=== PATIENT | male | born 1965 | race Caucasian/White ===

== ENCOUNTER 2019-01-02 12:09 | Outpatient (REF) | payer MEDICARE, SELFPAY ==
[2019-01-02 21:36] LABS: Hemoglobin A1C 5.8 % (4.5-6.2)
[2019-01-02 21:38] LABS: ALT 39 U/L (12-78); AST 25 U/L (15-37); Alkaline Phosphatase 85 U/L (46-116); Anion Gap 10.4 mmol/L (3-11); BUN 11 mg/dL (7-18); Bilirubin, Total 0.5 mg/dL (0.2-1.0); CO2 26.6 mmol/L (21.0-32.0); CREATININE 0.66 mg/dL (0.70-1.30); Calcium 8.8 mg/dL (8.5-10.1); Chloride 102 mmol/L (98-107); Cholesterol 98 mg/dL (50-200); Glucose 93 mg/dL (70-100); HDL Cholesterol 22 mg/dL (40-60); LDL CHOLESTEROL 63 mg/dL (<100); Potassium 4.3 mmol/L (3.5-5.1); Sodium 139 mmol/L (136-145); Total Protein 7.6 g/dL (6.4-8.2); Triglyceride 61 mg/dL (30-150)
[2019-01-04 09:17] LABS: PSA, Screening 0.2 ng/ml (0-3.5)
== END 2019-01-02 12:29 ==
LOC: NCHCN 12:09
PROVIDERS: PCP Family Medicine; Visit Provider Family Medicine
DX: E11.9 Type 2 diabetes mellitus without complications (principal); I25.10 Atherosclerotic heart disease of native coronary artery without angina pectoris; B19.20 Unspecified viral hepatitis C without hepatic coma; Z80.42 Family history of malignant neoplasm of prostate; Z12.5 Encounter for screening for malignant neoplasm of prostate
CPT/HCPCS: 80053; 80061; 83721; 84153; 83036

== ENCOUNTER 2019-10-05 19:02 | Emergency (ER) | payer MEDICARE, SELFPAY ==
[2019-10-05] VITALS (18 sets, daily range): BP systolic 105–120; BP diastolic 63–78; PULSE 63–73; RESP 12–20; TEMP 37.2; O2SAT 95–98
--- NOTE | 2019-10-05 19:12 | W.ED.GENAD ---
Discharge Plan Disposition Patient Disposition: HOME Condition: Good Discharge Details Chief Complaint: Dizzy/Sync Clinical Impression: Abnormal bruising, Lightheadedness Primary Care Provider: Lyndsay Katz V ED Provider: Jen Pierce Home Meds and New Rx's Prescriptions: Continued atorvastatin 80 MG tablet 80 mg PO DAILY RF: 0 clopidogrel 75 MG tablet 75 mg PO DAILY RF: 0 nitroglycerin 0.4 MG tablet, sublingual 0.4 mg Sublingual ONCE PRNRF: 0 aspirin 81 MG tablet,chewable 81 mg PO DAILY RF: 0 metoprolol succinate 25 MG tablet extended release 24 hr 25 mg PO DAILY RF: 0 naratriptan 2.5 MG tablet 2.5 mg PO ONCE PRNRF: 0 buprenorphine-naloxone 1 EACH tablet, sublingual 12 mg Sublingual DAILY RF: 0 isosorbide mononitrate 30 MG tablet extended release 24 hr 30 mg PO DAILY Qty: 90 RF: 3 gabapentin 300 mg Capsule 400 mg PO QID PRN (Reason: Pain) RF: 0 Discharge Instructions Instructions: Purpura (ED) Additional Instructions: Encourage water intake. Please take medication as prescribed. Your rash is most consistent with bruising. Please follow-up with primary care next week. If you develop pain, fevers, chills, chest pain, shortness of breath, spreading of the rash or the new/worsening symptoms please seek care urgently once again. Referrals: Lyndsay Katz MD [Primary Care Provider] - Medical Decision Making Patient is pleasant 54-year-old [id number] male presenting today with chief complaint of rash on the right forearm. He also describes episode of lightheadedness. He reports lightheadedness occurred this morning after he was working on his knees for period of time and went to standing position. States that it went away with rest. He denies any chest pain. No shortness of breath. He reports that he was splitting wood prior to this and did not have any symptoms. Has not noted any exertional symptoms. No fevers or chills. No recent travel. Patient is on Plavix and aspirin. His primary concern today is for a rash on the dorsal aspect of his right forearm. He states that this is only noted when his daughter saw the rash when he removed sweatshirt. He denies any pain, itching, fever/chills. No known trauma. EKG reviewed by Dr. Austin. Patient is normal sinus rhythm with a rate of 74. Was questioning possible peak T waves initially but this is unchanged from previous EKG in 2018. Ideally he advised that this seems to be fairly localized and not consistent with hyperkalemia. Labs are reassuring. No leukocytosis. A significant elevation in INR. Electrolyte abnormalities. Normal kidney and liver function. Troponin is less than 0.05. As his episode of lightheadedness was this morning, do not feel that repeat is necessary. Discussed these findings with the patient. Patient is a rash only dorsal aspect of the right forearm. Non-blanchable purple rash, most consistent with petechial rash. This is an isolated area. No rash noted elsewhere. He does report easy bleeding the patient again, is on a thorough and aspirin. Rash was evaluated by Dr. eBrry. He agrees that this most consistent with unusual bruising probably from a shearing injury, particular as the patient is on aspirin and clopidogrel. He marked out the area with a pen so patient may evaluate this and continue to monitor this more closely. Patient I discussed care of ecchymotic area. I encouraged close follow-up with primary care. He was given return precautions. Advised to continue to watch the area for any worsening symptoms. Return if he has any further episodes of lightheadedness. All his questions and concerns were addressed and prescription and he was in agreement with this plan. HPI General Mode of arrival: ambulatory. Date/Time Provider Initiated Documentation: 10/05/19 19:12. Limitations to Documentation: no limitations. Information obtained by: patient and RN notes reviewed. HPI Narrative: Patient is a 54-year-old male with history of NM, depression, diabetes, hepatitis C. He is presenting today with chief complaint of rash on right forearm. States that he noted a rash this afternoon. Is not having any burning, pain or sensation changes. States that he noted this when he took off his sweatshirt today and saw this area of purplish tinge to his skin on the dorsal aspect of the right forearm. No known trauma. Patient reports that he was splitting wood this morning. Does not believe that he injured himself but states it is not unusual for him to bruise easily particularly as he is on aspirin, clopidogrel. He reports that he also had an episode of lightheadedness. He was kneeling on the floor, sorting wood. Went to a standing position and reports a few minutes of lightheadedness. States that he sat down and the symptoms resolved. Did not note any of these when he was more physically exerting himself this morning while cutting wood. Denies any chest pain, shortness of breath. Reports it does not feel like when he had his NM historically. Denies any visual changes. Has not had any symptoms like this since then. He reports chronic shortness of breath, no recent change. Attributes this to his chronic smoking. No fevers or chills. Denies any cough. No nausea vomiting. Related Data Home Medications Medication Instructions Recorded Confirmed aspirin 81 mg PO DAILY tab-cap 05/23/17 10/05/19 atorvastatin 80 mg PO DAILY tab-cap 05/23/17 10/05/19 buprenorphine-naloxone 12 mg SUBLINGUAL DAILY tab 05/23/17 10/05/19 clopidogrel 75 mg PO DAILY tab-cap 05/23/17 10/05/19 metoprolol succinate 25 mg PO DAILY tab-cap 05/23/17 10/05/19 naratriptan 2.5 mg PO ONCE PRN tab-cap 05/23/17 10/05/19 nitroglycerin 0.4 mg SUBLINGUAL ONCE PRN tab-cap 05/23/17 10/05/19 isosorbide mononitrate 30 mg PO DAILY #90 tab-cap 07/25/17 10/05/19 gabapentin 400 mg PO QID PRN 10/05/19 10/05/19 Previous Rx's Medication Instructions Recorded isosorbide mononitrate 30 mg PO DAILY #90 tab-cap 07/25/17 Allergies Allergy/AdvReac Type Severity Reaction Status Date / Time Penicillins Allergy Intermediate Skin Rash Unverified 10/05/19 19:12 bupropion HCl AdvReac Intermediate Unverified 10/05/19 19:12 [From Wellbutrin] codeine AdvReac Unverified 10/05/19 19:12 zolpidem tartrate AdvReac Unverified 10/05/19 19:12 [From Ambien] General Stated Complaint: Dizzy/Sync PAULA: 3 Review of Systems Constitutional Constitutional: Reports as per HPI, Denies chills, Denies fever(s), Denies headache(s), Denies lethargy and Denies poor appetite Eyes Eyes: Denies change in vision ENT Ears, Nose, Mouth, and Throat: Denies dizziness and Denies headache(s) Cardiovascular Cardiovascular: Reports as per HPI, Denies dyspnea and Denies dyspnea on exertion Respiratory Respiratory: Reports as per HPI, Denies chest congestion, Denies cough, Denies pain on inspiration, Denies pain with cough, Denies dyspnea, Denies dyspnea on exertion and Denies wheezing Gastrointestinal Gastrointestinal: Reports as per HPI, Denies abdominal pain, Denies diarrhea, Denies nausea and Denies vomiting Genitourinary Genitourinary: Denies system reviewed and no additional complaints, except as docu (denies change in urinary habits) Musculoskeletal Musculoskeletal: Reports as per HPI and Denies back pain Integumentary/Breasts Skin/Breast: Reports as per HPI and Denies rash Neurologic Neurologic: Reports as per HPI, Denies dizziness and Denies headache(s) Allergic/Immunologic Allergic/Immunologic: Denies wheezing [facility] Medical History (Updated 10/05/19 @ 19:13 by Marlys Castañeda) Acute NM (Acute) Surgical History (Updated 10/05/19 @ 19:13 by Marlys Castañeda) H/O heart artery stent (Chronic) Social History Smoking/Tobacco Use Status: Current every day Tobacco Type: cigarettes Tobacco: How many years used: 35 Alcohol Intake: former Drug use: Daily Substance use type: marijuana Do you feel safe at home: Yes Do you feel safe in your relationship?: Yes Exam Const General: cooperative, healthy appearing, comfortable, no acute distress and well developed Nutritional Appearance: average body habitus and well nourished Orientation: alert, awake and oriented x3 HENMT Head: normal to inspection Ears: hearing grossly normal bilaterally Mouth: moist mucous membranes Chest Chest: normal inspection of the chest, normal palpation of entire chest wall and no crepitus Resp Effort & Inspection: normal respiratory effort, able to speak in complete sentences and no respiratory distress Auscultation: clear to auscultation bilaterally, no rales, no rhonchi and no wheezes Cardio Rate: regular rate Rhythm: regular rhythm Heart Sounds: S1 normal and S2 normal GI Inspection: normal to inspection, no edema and non-distended Palpation: soft, no hepatosplenomegaly, not firm, no guarding, not rigid and nontender Auscultation: normal bowel sounds Back/Spine/Pelvis Back: no CVA tenderness Thoracic/Lumbar Spine: thoracic and lumbar spine normal to inspection Skin Rashes: rashes noted (as below) Neuro General: alert, awake and oriented x3 Cognition: normal cognition Speech: speech normal Gait: normal gait Extrem General: normal to inspection, normal capillary refill, no pedal edema, no calf tenderness and normal gait Elbow/forearm/wrist images: 1. Area of non-blanchable petechial purple rash. Not raised. No erythema. No warmth. Nontender to the touch. Full range of motion of the extremity. Good capillary refill. Psych Appearance: grossly normal and well kempt Mental Status: mental status grossly normal Speech and Movement: speech and movement normal Course Vital Signs Vital signs: Vital Signs Temperature 37.2 C 10/05/19 19:08 Pulse 70 10/05/19 19:08 Respiratory Rate 10/05/19 19:08 Blood Pressure 120/78 10/05/19 19:08 Pulse Oximetry 98 10/05/19 19:08 Temperature 37.2 C 10/05/19 19:08 Temperature Source Skin 10/05/19 19:08 Pulse 70 10/05/19 19:08 Respiratory Rate 10/05/19 19:08 Blood Pressure 120/78 10/05/19 19:08 Blood Pressure Position Sitting 10/05/19 19:08 Pulse Oximetry 98 10/05/19 19:08 Oxygen Delivery Method Room Air 10/05/19 19:08 Oxygen Flow Rate 0 10/05/19 19:08 Pain Level 0 10/05/19 19:08
[2019-10-05] MEDS: Normal Saline 1,000 ML 150 ML IV (19:21)
[2019-10-05] MEDS: Normal Saline Flush 10 ML SYR IVP (19:23)
[2019-10-05 19:27] LABS: Abs Immature Grans 0.01 k/cumm (0.0-0.09); Absolute Basophil Count 0.05 k/cumm (0.0-0.2); Absolute Eosinophil Count 0.25 k/cumm (0.0-0.7); Absolute Lymphocyte Count 2.37 k/cumm (1.2-3.4); Absolute Monocyte Count 0.81 k/cumm (0.11-0.7); Absolute Neutrophil Count 4.61 k/cumm (1.2-6.7); Basophils % 0.6; Eosinophils % 3.1; HCT 39.6 % (40.0-50.0); HGB 13.6 g/dL (13.5-17.5); Immature Grans % 0.1 %; Lymphocytes % 29.3; Mean Corp. HGB Concentration 34.3 g/dL (32.0-36.0); Mean Corpuscular Hemoglobin 31.6 pg (27.0-33.0); Mean Corpuscular Volume 91.9 fL (80-95); Mean Platelet Volume 11.2 fL (8.0-11.0); Neutrophils % 56.9; Platelet Count 143 x1000/uL (130-400); RBC 4.31 m/cumm (4.50-6.00)
[2019-10-05 19:37] LABS: INR 1.2 (0.9-1.1); PTT Activated 28.1 sec (21.0-31.4); Prothrombin Time 12.1 sec (9.3-11.0)
[2019-10-05 19:55] LABS: ALT 33 U/L (16-63); AST 34 U/L (15-37); Albumin 3.9 g/dL (3.4-5.0); Alkaline Phosphatase 78 U/L (46-116); Anion Gap 10.5 mmol/L (3-11); BUN 12 mg/dL (7-18); Bilirubin, Total 0.4 mg/dL (0.2-1.0); CO2 27.5 mmol/L (21.0-32.0); CREATININE 0.76 mg/dL (0.70-1.30); Calcium 8.9 mg/dL (8.5-10.1); Chloride 104 mmol/L (98-107); Glucose 115 mg/dL (74-106); Magnesium 1.8 mg/dL (1.8-2.4); Sodium 142 mmol/L (136-145); Total Protein 7.4 g/dL (6.4-8.2)
[2019-10-05 19:56] LABS: Troponin I < 0.05 ng/Ml (<0.06)
== END 2019-10-05 21:15 | disposition home or self-care (01) ==
PROVIDERS: Emergency Provider Physician Assistant; PCP Family Medicine
DX: R23.3 Spontaneous ecchymoses (principal); R42 Dizziness and giddiness; Z79.01 Long term (current) use of anticoagulants; I25.2 Old myocardial infarction; E11.9 Type 2 diabetes mellitus without complications
CPT/HCPCS: 80053; 93005; 99283; 83735; 84484; 85025; 85610; 85730; 93010

== ENCOUNTER 2019-11-20 20:57 | Emergency (ER) | payer MEDICARE, SELFPAY ==
[2019-11-20 21:00] VITALS: BP 142/88; PULSE 61; O2SAT 98
--- NOTE | 2019-11-20 21:35 | ED.GENADUL_ITS ---
Discharge Plan Disposition Patient Disposition: HOME Condition: Good Discharge Details Chief Complaint: Laceration Clinical Impression: Hand laceration Primary Care Provider: Lyndsay Katz V ED Provider: Jen Pierce Home Meds and New Rx's Prescriptions: Continued atorvastatin 80 MG tablet 80 mg PO DAILY RF: 0 clopidogrel 75 MG tablet 75 mg PO DAILY RF: 0 nitroglycerin 0.4 MG tablet, sublingual 0.4 mg Sublingual ONCE PRNRF: 0 aspirin 81 MG tablet,chewable 81 mg PO DAILY RF: 0 metoprolol succinate 25 MG tablet extended release 24 hr 25 mg PO DAILY RF: 0 naratriptan 2.5 MG tablet 2.5 mg PO ONCE PRNRF: 0 buprenorphine-naloxone 1 EACH tablet, sublingual 12 mg Sublingual DAILY RF: 0 isosorbide mononitrate 30 MG tablet extended release 24 hr 30 mg PO DAILY Qty: 90 RF: 3 gabapentin 300 mg Capsule 400 mg PO QID PRN (Reason: Pain) RF: 0 Discharge Instructions Instructions: Laceration (ED), Skin Adhesive Care (ED) Additional Instructions: Keep wound clean, dry, covered. Monitor for signs infection including redness, warmth, drainage, increased pain, fever/chills. If you develop these or other new/worsening symptoms please seek care urgently once again. Please allow the adhesive to come off naturally. Please wear gloves when appropriate to help prevent infection. Follow-up with primary care as needed. Referrals: Lyndsay Katz MD [Primary Care Provider] - Medical Decision Making Patient is a pleasant [id number] 54-year-old male presenting today with chief complaint of laceration to left thenar eminence. Patient reports that he is on aspirin and Plavix as he has cardiac stent placement. Has been having difficulty controlling the bleeding from the laceration. He reports that he was chipping away a piece of wood when he slipped with his chisel and caught his left thenar eminence. States he has been having some tingling in the left thumb. Denies other injury the time of the incident. Unknown tetanus status. Forward to motion. On exam, patient has less than a 1 cm linear laceration appears very superficial no deep tissue involvement. No tenderness involvement. He has sharp dull and dull testing intact distal to the wound to the very tip of the finger. Unclear if this is associated trauma or if this is old is this does not correlate clinically. Wound appears to be too shallow to cause significant nerve damage. No active bleeding although he does have a blood soaked gauze with him. States he has been trying to control bleeding without success at home. Patient discussed her/benefits as well as expected procedural steps of the adhesive closure. I feel that this would benefit greatly from any further bleeding patient. Also She wants treatment plan. Order was understanding wished to proceed. Please see procedure note. Wound was copiously irrigated explored to base in a bloodless field with no foreign body or debris noted. Similarities and possibly supplied. Patient is apparent wound care. We discussed signs symptoms of infection again. I did advise that if he continues to have this unusual sensation the time of the digit that he follow-up with primary care next week. Also with kidney cancer addressed in his agreement this plan. HPI General Mode of arrival: ambulatory . Date/Time Provider Initiated Documentation: 11/20/19 21:35 . Limitations to Documentation: no limitations . Information obtained by: patient, family (daughter and son in law) and RN notes reviewed . History of Present Illness 54 year old M presents to the emergency department with the chief complaint of left hand laceration, described as moderate, with intensity rated at 6. Quality is described as burning, and is localized to the left and upper extremity. Patient reports no radiation. Patient started experiencing this minute(s) and it has been constant. Immobilization improves symptom(s), Movement worsens symptoms . Patient notes no other symptoms.. Patient did receive the following treatments prior to arrival, none Related Data Home Medications Medication Instructions Recorded Confirmed aspirin 81 mg PO DAILY tab-cap 05/23/17 11/20/19 atorvastatin 80 mg PO DAILY tab-cap 05/23/17 11/20/19 buprenorphine-naloxone 12 mg SUBLINGUAL DAILY tab 05/23/17 11/20/19 clopidogrel 75 mg PO DAILY tab-cap 05/23/17 11/20/19 metoprolol succinate 25 mg PO DAILY tab-cap 05/23/17 11/20/19 naratriptan 2.5 mg PO ONCE PRN tab-cap 05/23/17 11/20/19 nitroglycerin 0.4 mg SUBLINGUAL ONCE PRN tab-cap 05/23/17 11/20/19 isosorbide mononitrate 30 mg PO DAILY #90 tab-cap 07/25/17 11/20/19 gabapentin 400 mg PO QID PRN 10/05/19 11/20/19 Previous Rx's Medication Instructions Recorded isosorbide mononitrate 30 mg PO DAILY #90 tab-cap 07/25/17 Allergies Allergy/AdvReac Type Severity Reaction Status Date / Time Penicillins Allergy Intermediate Skin Rash Unverified 11/20/19 21:04 bupropion HCl AdvReac Intermediate Unverified 11/20/19 21:04 [From Wellbutrin] codeine AdvReac Unverified 11/20/19 21:04 zolpidem tartrate AdvReac Unverified 11/20/19 21:04 [From Ambien] General Stated Complaint: Laceration PAULA: 4 Review of Systems Constitutional Constitutional: Reports as per HPI, Denies chills and Denies fever(s) Musculoskeletal Musculoskeletal: Reports as per HPI Integumentary/Breasts Skin/Breast: Reports as per HPI Neurologic Neurologic: Reports as per HPI, Denies sensory deficit and Denies paresthesias PFSH Medical History Acute DE (Acute) Surgical History H/O heart artery stent (Chronic) Social History Smoking/Tobacco Use Status: Current every day Tobacco Type: cigarettes Tobacco: How many years used: 35 Alcohol Intake: former Drug use: Daily Substance use type: marijuana Do you feel safe at home: Yes Do you feel safe in your relationship?: Yes Exam Const General: cooperative, healthy appearing, comfortable, no acute distress and well developed Nutritional Appearance: average body habitus and well nourished Orientation: alert and awake Resp Effort & Inspection: normal respiratory effort, able to speak in complete sentences and no respiratory distress Cardio Rate: regular rate Rhythm: regular rhythm Skin Trauma: laceration (<1cm superficial laceration left thenar emminance) Neuro General: alert and awake Cognition: normal cognition Speech: speech normal Gait: normal gait Sensory Exam: no sensory deficits noted Extrem Hand/finger images: 1. superficial laceration. Wound edges do not separate. No active bleeding. No FB or debris noted. No deep structure involvement. Brisk capillary refill. He has sharp/dull testing distal to the wound except at the very tip of the finger Psych Appearance: grossly normal and well kempt Mental Status: mental status grossly normal Speech and Movement: speech and movement normal Course Vital Signs Vital signs: Vital Signs Pulse 61 11/20/19 21:00 Blood Pressure 142/88 H 11/20/19 21:00 Pulse Oximetry 98 11/20/19 21:00 Temperature Source Skin 11/20/19 21:00 Pulse 61 11/20/19 21:00 Respiratory Effort Non-Labored 11/20/19 21:14 Blood Pressure 142/88 H 11/20/19 21:00 Blood Pressure Position Sitting 11/20/19 21:00 Pulse Oximetry 98 11/20/19 21:00 Oxygen Delivery Method Room Air 11/20/19 21:00 Oxygen Flow Rate 0 11/20/19 21:00 Pain Level 6 11/20/19 21:16 Procedures Laceration Laceration 1: Site: hand Side (If applicable): left Size (cm): 1 Description: linear Depth: simple, single layer Pre-repair: wound explored, irrigated extensively and deep structures intact Skin layer closed with: other (adhesive)
== END 2019-11-20 22:05 | disposition home or self-care (01) ==
PROVIDERS: Emergency Provider Physician Assistant; PCP Family Medicine
DX: S61.412A Laceration without foreign body of left hand, initial encounter (principal); W26.8XXA Contact with other sharp object(s), not elsewhere classified, initial encounter; Z79.01 Long term (current) use of anticoagulants; Z95.818 Presence of other cardiac implants and grafts
CPT/HCPCS: 12001; 90471

== ENCOUNTER 2020-08-15 18:24 | Outpatient (REF) | payer MEDICARE, SELFPAY ==
[2020-08-15 20:50] LABS: Hemoglobin A1C 5.6 % (<5.7)
[2020-08-15 21:08] LABS: ALT 33 U/L (16-63); AST 29 U/L (15-37); Albumin 4.5 g/dL (3.4-5.0); Alkaline Phosphatase 85 U/L (46-116); Anion Gap 8.1 mmol/L (3-11); BUN 11 mg/dL (7-18); Bilirubin, Total 0.6 mg/dL (0.2-1.0); CO2 26.9 mmol/L (21.0-32.0); CREATININE 0.67 mg/dL (0.70-1.30); Calcium 8.8 mg/dL (8.5-10.1); Chloride 105 mmol/L (98-107); Glucose 97 mg/dL (74-106); Potassium 4.1 mmol/L (3.5-5.1); Sodium 140 mmol/L (136-145); Total Protein 7.6 g/dL (6.4-8.2)
[2020-08-26 09:29] LABS: PSA, Screening 0.2 ng/mL (0-3.5)
== END 2020-08-15 18:44 ==
LOC: NCHCN 18:24
PROVIDERS: PCP Family Medicine; Visit Provider Family Medicine
DX: Z00.00 Encounter for general adult medical examination without abnormal findings (principal); I25.10 Atherosclerotic heart disease of native coronary artery without angina pectoris; E11.9 Type 2 diabetes mellitus without complications
CPT/HCPCS: 80053; 84153; 83036

== ENCOUNTER 2020-08-28 01:28 | Outpatient (CLI) | payer MEDICARE, SELFPAY ==
--- NOTE | 2020-08-28 10:11 | DI.CTLCSR_ITS ---
EXAM: CT CHEST LUNG CANCER SCREEN CLINICAL HISTORY: SCREENING FOR LUNG CA,CURRENT SMOKER, F17.210 TECHNIQUE: Imaging Protocol: Axial computed tomography images with coronal and sagittal reformatted images were created and reviewed COMPARISON: CT CTA THORAX/ABDOMEN/PELVIS from 04/02/2017 FINDINGS: Lungs: The left upper lobe there is a tiny subpleural nodule posteriorly which is unchanged from 2017 and therefore benign. There is also slight focal pleural thickening in the upper most aspect of the left major fissure which is also unchanged from 2017 and therefore benign. Mild benign-appearing in creased markings in the superior lingular segment of the left lung are also unchanged. Tiny subpleur al granuloma in the posterior basal segment of the left lower lobe is also unchanged. No new left debra ng findings. No pleural effusion. In the opposite-right lung there are subpleural increased markings over the posterior aspect of the r ight lower lobe which are unchanged. No new significant focal right lung findings. No pleural effus ion. There are no significant focal findings in the trachea and mainstem bronchi. There is no bronchiecta sis. Mediastinum: There is no obvious hilar nor significant mediastinal adenopathy. No axillary adenopath y. Visualized thyroid unremarkable. Cardiac: Heart size normal. There is no pericardial effusion. Caliber of the thoracic aorta is with in normal limits. Osseous: No significant osseous lesions evident Visualized upper abdomen: No obvious adrenal masses. Prior cholecystectomy noted. IMPRESSION: Benign findings as described above, unchanged from March 2017. No new ominous pulmonary nodules nor p leural effusions nor obvious intrathoracic adenopathy. Lung RADS Cat 2 - Benign Appearance / Behavior: Nodules with a very low likelihood of becoming a clin ically active cancer due to size or lack of growth Lung-RADS 1.0 CATEGORIES: Category 0 - Prior chest CT exam(s) being located for comparison. Category 1 - Annual screening in 12 months. No nodules or definitely benign nodules. Category 2 - Annual screening in 12 months. Benign appearance. Nodules with low likelihood of becomin g active cancer. Category 3 - 6-month follow-up. Probably benign. Short-term follow-up suggested. Nodules with low lik elihood of becoming active cancer. Category 4A - 3-month follow-up and CT/PET if >8 mm in size. Suspicious finding. Findings which requi re additional testing. Category 4B - Findings which require additional testing and tissue sampling. Suspicious finding. C Added to Any of the Above - History of prior lung cancer screening. S Added to Any of the Above - Significant unexpected other finding. RADIATION DOSE DELIVERED: 83.88mGy.cm Total DLP DATA REPOSITORY: All CT scans at this facility are submitted to the National Radiology Data Registry (NRDR) Dose Index Registry (DIR) with the [employer] ([employer]). RADIATION OPTIMIZATION: All CT scans at this facility use at least one of these dose optimization te chniques: automated exposure control; mA and/or kV adjustment per patient size (includes targeted exa ms where dose is matched to clinical indication); or iterative reconstruction.
== END 2020-08-28 01:48 ==
PROVIDERS: PCP Family Medicine; Visit Provider Family Medicine
DX: F17.210 Nicotine dependence, cigarettes, uncomplicated (principal); R91.1 Solitary pulmonary nodule
CPT/HCPCS: G0297

== ENCOUNTER 2021-01-02 09:43 | Outpatient (CLI) | payer OTHER, SELFPAY ==
--- NOTE | 2021-01-02 10:00 | RT.EKG_ITS ---
APPROVED REPORT Exam: Resting ECG Patient Location: O HR:56 bpm ECG Measurements Heart Rate 56 AXIS VA 143 P 67 QRSd 104 QRS 30 QT 436 T 36 QTc 421 Conclusion Sinus rhythm...normal P axis, V-rate 50- 99 Left atrial enlargement...P, P'>60mS, <-0.15mV V1
== END 2021-01-02 09:44 | disposition home or self-care (01) ==
LOC: DI.CARD 10:08
PROVIDERS: PCP Family Medicine; Referring Provider Family Medicine; Visit Provider Internal Medicine Cardiovascular Disease
DX: I25.10 Atherosclerotic heart disease of native coronary artery without angina pectoris (principal)
CPT/HCPCS: 93010

== ENCOUNTER → 2021-01-02 09:43 | Outpatient (BNVA) | payer OTHER, SELFPAY | PROVIDERS: PCP Family Medicine; Referring Provider Family Medicine; Visit Provider Internal Medicine Cardiovascular Disease | DX: I25.10 Atherosclerotic heart disease of native coronary artery without angina pectoris (principal); Z01.810 Encounter for preprocedural cardiovascular examination; F17.210 Nicotine dependence, cigarettes, uncomplicated; G47.33 Obstructive sleep apnea (adult) (pediatric) | CPT/HCPCS: 93005; 99204; 99214 ==

== ENCOUNTER 2021-08-17 13:53 | Outpatient (CLI) | payer OTHER, SELFPAY ==
--- NOTE | 2021-08-17 14:00 | DI.US_ITS ---
APPROVED REPORT EXAM: Comprehensive 2D, Doppler, and color-flow Echocardiogram Patient Location: Out-Patient Heel Varnisher: Dina Perry RDCS (AE) Indications: CAD Other Information Study Quality: Adequate Conclusion Normal left ventricular wall thickness and chamber size. Estimated ejection fraction is 60%. There are no segmental wall motion abnormalities Normal right ventricular size and systolic function Both atria are normal in size Mildly sclerotic trileaflet aortic valve without stenosis or regurgitation Normal mitral valve with trace regurgitation Normal tricuspid valve with trace to mild regurgitation. Normal estimated right ventricular systolic pressure Mildly dilated ascending aorta measuring 3.72 cm Wall motion Left Ventricle The left ventricle is normal size. The left ventricular systolic function is normal. The left ventric ular ejection fraction is within the normal range. There is normal left ventricular wall thickness. T here is normal LV segmental wall motion. There is no ventricular septal defect visualized. LVEF is 60 %. Right Ventricle The right ventricle is normal size. The right ventricular systolic function is normal. Atria The left atrium size is normal. The right atrium size is normal. Aortic Valve The aortic valve is mildly sclerotic Aortic valve is trileaflet. There is no aortic valvular stenosis . No aortic regurgitation is present. Mitral Valve The mitral valve is normal in structure. No evidence of mitral valve stenosis. Trace mitral regurgita tion. Tricuspid Valve The tricuspid valve is normal in structure. There is no tricuspid valve stenosis. Trace to mild tricu spid regurgitation. Pulmonic Valve The pulmonary valve is normal in structure. There is no pulmonic valvular stenosis. There is no pulmo roldan valvular regurgitation. Great Vessels The aortic root is normal in size. The ascending aorta is mildly dilated. IVC is normal in size and c ollapses >50% with inspiration. Pericardium There is no pericardial effusion. 2D Dimensions IVSD d PLAX 0.92 cm M: 0.6-1.2 LV Vol A2C d MOD 117.3 mL LVPW d PLAX 0.91 cm M: 0.6 - 1.2 LV Vol A4C d MOD 131.7 mL LVID d PLAX 5.23 cm M: 4.2 - 5.8 LA vol/ BSA A2C s A-L 28.3 mL/m2 LVDs 3.55 cm M: 2.5 - 4.0 LA vol/ BSA A4C s A-L 32.2 mL/m2 Ao Root d 3.25 cm M: 3.1 - 3.7 LA Vol/ BSA Biplane s A-L 31.2 mL/m2 RA Area A4C 12.87 cm2 LA Area A4C s MOD 19.64 cm2 RA Vol/ BSA A4C s A-L 17.3 mL/m2 LA Area A2C s MOD 17.82 cm2 Ao Asc Diam d 3.72 cm M: 2.6 - 3.4 LV EF A4C MOD 60.6 % LV EF Teichholz 58.6 % LV EF A2C MOD 61.6 % LVEF (Khalil's) 61.41 % M: 52 - 72 LV EF Biplane MOD 61.4 % LV Volume 97.41 mL M: 62 - 150 SV 77.85 mL LV Volume Index 52.37 mL/m2 M: 34 - 74 SV Index 41.79 mL/m2 LV Vol Biplane MOD 126.8 mL FS 31.15 % M-Mode TAPSE 2.54 cm (M/F) >1.7 LV Diastology MV E' medial 0.079 (>0.07 m/s) E/A Ratio 1.1 LV E/e MED 11.55 (<14) MV E Vmax 0.92 (0.4-1.3 m/s) MV E' lateral 0.111 (>0.1 m/s) MV A Vmax 0.85 (0.4-1.3 m/s) LV E/e LAT 8.25 (<14) MV E/A Ratio 1.06 MV E/E' medial 11.59 MV E/E' lateral 8.28 Aortic Valve LVOT Area 3.26 cm2 AoV Area Vmax 2.55 cm2 LVOT Vmax 1.21 m/s AoV Area/ BSA (Vmax) 1.37 cm2/m2 LVOT Mean Bartolo. 0.81 m/s LISA Mean [place]. 2.46 cm2 LVOT Peak Grad 5.9 mmHg LISA Mean [place]. Index 1.32 cm2/m2 LVOT Mean Grad 3.0 mmHg LVOT VTI 0.238 m LVOT Diam s 2.00 cm AoV Vmax 1.55 m/s Velocity Ratio 0.78 AoV Mean Bartolo. 1.07 m/s AoV Peak Grad 9.6 mmHg LVOT SV 77.54 mL AoV Mean Grad 5.2 mmHg AoV VTI 0.292 m AoV Area VTI 2.65 cm2 AoV Area/ BSA (VTI) 1.42 cm/m2 Mitral Valve MV DT 279 (160-240 msec) MV PHT 81 msec MV Area PHT 2.72 cm2 MV VTI 0.450 m MV Area VTI 1.72 (4.0-6.0 cm2) Pulmonary Valve PV Vmax 1.09 (0.5-1.5 m/s) RVOT Peak Gr. 2.07 mmHg PV Peak Grad 4.8 mmHg RVOT Mean Gr. 0.95 mmHg PV Mean Grad 2.5 mmHg RVOT VTI 0.143 m PV VTI 0.197 m RVOT Vmax 0.72 m/s Tricuspid Valve TR Peak Grad 17.6 mmHg TR Vmax 2.10 m/s RA Pressure 3.00 mmHg RVSP (TR) 20.7 mmHg
== END 2021-08-17 14:13 ==
PROVIDERS: PCP Family Medicine; Visit Provider Internal Medicine Cardiovascular Disease
DX: I25.10 Atherosclerotic heart disease of native coronary artery without angina pectoris (principal); I36.1 Nonrheumatic tricuspid (valve) insufficiency; I77.810 Thoracic aortic ectasia
CPT/HCPCS: 93306

== ENCOUNTER → 2021-08-24 10:33 | Outpatient (BNVA) | payer OTHER, SELFPAY | PROVIDERS: PCP Family Medicine; Referring Provider Family Medicine; Visit Provider Internal Medicine Cardiovascular Disease | DX: I25.10 Atherosclerotic heart disease of native coronary artery without angina pectoris (principal); F17.210 Nicotine dependence, cigarettes, uncomplicated | CPT/HCPCS: 99214; 99213 ==

== ENCOUNTER 2021-12-04 16:30 | Outpatient (REF) | payer OTHER, SELFPAY ==
[2021-12-04 18:54] LABS: HGB 14.3 g/dL (13.5-17.5)
[2021-12-04 19:05] LABS: ALT 34 U/L (16-63); AST 26 U/L (15-37); Albumin 4.1 g/dL (3.4-5.0); Alkaline Phosphatase 82 U/L (46-116); Anion Gap 9.4 mmol/L (3-11); BUN 10 mg/dL (7-18); Bilirubin, Total 0.5 mg/dL (0.2-1.0); CO2 25.6 mmol/L (21.0-32.0); CREATININE 0.7 mg/dL (0.70-1.30); Calcium 8.8 mg/dL (8.5-10.1); Chloride 105 mmol/L (98-107); Glucose 83 mg/dL (74-106); Potassium 4.4 mmol/L (3.5-5.1); Sodium 140 mmol/L (136-145); Total Protein 7.4 g/dL (6.4-8.2)
[2021-12-04 19:20] LABS: Hemoglobin A1C 5.9 % (<5.7)
[2021-12-07 10:45] LABS: PSA, Screening 0.2 ng/mL (0.0-3.5)
[2021-12-09 10:56] LABS: AFP Tumor Marker <2.5 ng/mL (<8.1)
== END 2021-12-04 16:31 | disposition home or self-care (01) ==
LOC: NCHCN 16:30
PROVIDERS: PCP Family Medicine; Visit Provider Family Medicine
DX: E11.9 Type 2 diabetes mellitus without complications (principal); I25.10 Atherosclerotic heart disease of native coronary artery without angina pectoris; Z12.5 Encounter for screening for malignant neoplasm of prostate; F17.210 Nicotine dependence, cigarettes, uncomplicated; J44.9 Chronic obstructive pulmonary disease, unspecified; B18.2 Chronic viral hepatitis C
CPT/HCPCS: 80053; 84153; 82105; 83036; 85014; 85018

== ENCOUNTER 2022-04-12 18:43 | Outpatient (REF) | payer OTHER, SELFPAY ==
[2022-04-17 02:56] LABS: Benzoylecgonine 194 ng/mL (Cutoff: 50); Cocaine Negative ng/mL (Cutoff: 50); Cocaine Interpretation Positive.
[2022-04-20 09:57] LABS: Fentanyl Interpretation Negative.; Fentanyl by LC-MS/MS Negative; Norfentanyl by LC-MS/MS Negative
== END 2022-04-12 18:44 | disposition home or self-care (01) ==
LOC: NCHCN 18:43
PROVIDERS: PCP Family Medicine; Visit Provider Nurse Practitioner Family
DX: Z02.89 Encounter for other administrative examinations (principal); Z79.899 Other long term (current) drug therapy
CPT/HCPCS: 80353; 80354

== ENCOUNTER 2022-08-31 11:35 | Outpatient (REF) | payer OTHER, SELFPAY ==
--- NOTE | 2022-08-31 10:45 | SKI_PTH ---
PATIENT: Ish Tuttle LOC: [facility] U#:[id number] AGE/SX: 57/M ROOM: RE08/31/[address]: Lyndsay Katz V : 1965 BED: DIS: 08/31/2022 SPEC #: [id number] RECD: 08/31/22 16:56 STATUS: DAKOTA REYandy #: [id number] BRANDON: 08/31/22 10:[address]: Lyndsay Katz V DEPT: Surgical Specimen RECD BY: Amita Jeong Tissues: 1 - SKIN BIOPSY(SHAVE/PUNCH) Procedures: SKIN LEVEL 4 Comments: [id number]
== END 2022-08-31 11:36 | disposition home or self-care (01) ==
LOC: NCHCN 11:35
PROVIDERS: PCP Family Medicine; Visit Provider Family Medicine
DX: D22.72 Melanocytic nevi of left lower limb, including hip (principal)
CPT/HCPCS: 88305

== ENCOUNTER → 2022-10-14 12:43 | Outpatient (BNVA) | payer OTHER, SELFPAY | PROVIDERS: PCP Family Medicine; Referring Provider Family Medicine; Visit Provider Physical Therapy Assistant | DX: F17.210 Nicotine dependence, cigarettes, uncomplicated (principal); Z12.11 Encounter for screening for malignant neoplasm of colon; I25.10 Atherosclerotic heart disease of native coronary artery without angina pectoris ==

== ENCOUNTER → 2022-10-21 09:39 | Outpatient (BNVA) | payer OTHER, SELFPAY | PROVIDERS: PCP Family Medicine; Referring Provider Family Medicine; Visit Provider Internal Medicine Cardiovascular Disease | DX: I25.10 Atherosclerotic heart disease of native coronary artery without angina pectoris (principal) | CPT/HCPCS: 93005; 99214; 99213 ==

== ENCOUNTER 2022-10-21 09:40 | Outpatient (CLI) | payer OTHER, SELFPAY ==
--- NOTE | 2022-10-21 09:30 | RT.EKG_ITS ---
APPROVED REPORT Exam: Resting ECG Reason for Exam: cardiac clearance for sx. Patient Location: O HR:54 bpm ECG Measurements Heart Rate 54 AXIS FL 142 P 76 QRSd 103 QRS 71 QT 434 T 54 QTc 412 Conclusion Sinus rhythm...normal P axis, V-rate 50- 99 Normal Electrocardiogram
== END 2022-10-21 09:41 | disposition home or self-care (01) ==
LOC: DI.CARD 09:40
PROVIDERS: PCP Family Medicine; Visit Provider Internal Medicine Cardiovascular Disease
DX: I25.10 Atherosclerotic heart disease of native coronary artery without angina pectoris (principal)
CPT/HCPCS: 93010

== ENCOUNTER 2022-12-16 03:59 | Outpatient (CLI) | payer OTHER, SELFPAY ==
--- NOTE | 2022-12-16 16:10 | DI.CTLCSR_ITS ---
Exam(s) CT CHEST LUNG CANCER SCREEN EXAM: CT CHEST LUNG CANCER SCREEN CLINICAL HISTORY: SCREENING FOR LUNG CA, SMOKER, F17.210 TECHNIQUE: Imaging Protocol: Axial computed tomography images with coronal and sagittal reformatted images were created and reviewed COMPARISON: CT CT CHEST LUNG CANCER SCREEN from 08/28/2020 FINDINGS: Tracheobronchial tree: Patent where visualized. Pulmonary parenchyma: Centrilobular emphysematous changes are present. No focal consolidating infilt rates are seen. Mild dependent atelectatic changes are seen in the lungs. No architectural distorti on. Lung Nodules: There is again seen a 0.4 cm nodule in the left upper lobe associated with the major fi ssure. No new pulmonary nodules are present. Mediastinum and Aubree: Stable mediastinal lymph nodes are present. No suspicious lymph nodes are seen . The esophagus is unremarkable. Thyroid gland: Unremarkable. Lymph nodes: No suspicious axillary lymph nodes. Pleura: No effusion or pneumothorax. Heart: The heart is not dilated. Moderate coronary artery calcification is present. No pericardial e ffusion. Aorta: Thoracic aorta non-dilated.Atherosclerosis is present. Upper abdomen: Status post cholecystectomy. Soft Tissues: Unremarkable. Bones: Within normal limits. IMPRESSION: No new pulmonary nodules. Lung RADS Cat 2 - Benign Appearance / Behavior: Nodules with a very low likelihood of becoming a clin ically active cancer due to size or lack of growth Lung-RADS 1.0 CATEGORIES: Category 0 - Prior chest CT exam(s) being located for comparison. Category 1 - Annual screening in 12 months. No nodules or definitely benign nodules. Category 2 - Annual screening in 12 months. Benign appearance. Nodules with low likelihood of becomin g active cancer. Category 3 - 6-month follow-up. Probably benign. Short-term follow-up suggested. Nodules with low lik elihood of becoming active cancer. Category 4A - 3-month follow-up and CT/PET if >8 mm in size. Suspicious finding. Findings which requi re additional testing. Category 4B - Findings which require additional testing and tissue sampling. Suspicious finding. Category 4X - Category 3 or 4 nodules with additional features or imaging findings that increases the suspicion of malignancy. Modifier S- Potentially clinically significant finding. (Non lung cancer) RADIATION DOSE DELIVERED: 91.09mGy.cm Total DLP 91.09mGy.cmTotal DLP DATA REPOSITORY: All CT scans at this facility are submitted to the National Radiology Data Registry (NRDR) Dose Index Registry (DIR) with the [employer] (A[employer]). RADIATION OPTIMIZATION: All CT scans at this facility use at least one of these dose optimization te chniques: automated exposure control; mA and/or kV adjustment per patient size (includes targeted exa ms where dose is matched to clinical indication); or iterative reconstruction.
== END 2022-12-16 04:19 ==
PROVIDERS: PCP Family Medicine; Visit Provider Family Medicine
DX: Z12.2 Encounter for screening for malignant neoplasm of respiratory organs (principal); F17.210 Nicotine dependence, cigarettes, uncomplicated; J43.2 Centrilobular emphysema; R91.1 Solitary pulmonary nodule
CPT/HCPCS: 71271

== ENCOUNTER 2022-12-23 01:01 | Outpatient (CLI) | payer OTHER, SELFPAY ==
--- NOTE | 2022-12-23 | DI.NM_ITS ---
APPROVED REPORT Exam: Pharmacologic Patient Location: Out-Patient Room/Bed: Stress Nurse: Gretchen Cook RN Ordering Provider:WILLIAM AUGUSTIN, Contact Number: [phone] BMI: 23.42 Baseline Rhythm: Sinus Bradycardia Indications: Chest wall pain, H/O stenting Medical History Medical History: CAD, smoker, COPD, [place], DM, GERD, HLD, Hep C, insomnia, depression, MRSA, substance a buse Cardiac Medications: Omeprazole, SL nitro, metoprolol succinate, methocarbamol, isosorbide mononitrat e, gabapentin, buprenorphrine, atorvastatin, aspririn, albuterol sulfate, umeclidinium-vilanterol Allergies: PCN, varenicline, wellbutrin, codeine, zolpedem tartrate Cardiac Risk Factors: Family hx, HTN, HLD, CVD, diabetes, COPD, smoker Previous Cardiac Procedures: Stents 3 years ago (per patient report) Pretest Chest Pain Characteristics: None Exercise History: Indeterminate Physical Disabilities: None Lung Sounds: Clear to auscultation Heart Sounds: Bradycardia Stress Test Details Test: Pharmacologic stress was paired with low level exercise. Reason for pharmacologic stress test: changed from exercise stress test due to inability to reach t arget heart rate. Nuclear Acquisition: Rest Tc-99m/Stress Tc-99m 1 day Rest Isotope: Tc-99m Sestamibi. Dose: 10.0 Date: 12/23/2022 Injection Time: 1105 Stress Isotope: Tc-99m Sestamibi. Dose: 29.5 Date: 12/23/2022 Injection Time: 1235 HR Resting HR Supine: 47 bpm Max Heart Rate (APMHR): 162.693334 bpm Resting HR Standin bpm Target HR (85% APMHR): 137.849168 bpm Max HR Achieved: 105 bpm % of APMHR: 64.81 Recovery HR: 59 bpm BP Resting BP Supine: 138/86 mmHg Resting BP Standin/82 mmHg Max BP: 155/82 mmHg Recovery BP: 142/82 mmHg ECG Resting ECG: Sinus Bradycardia Ectopy: None Stress ECG: Sinus Bradycardia, Sinus Tachycardia ST Change: No significant ST segment changes noted Arrhythmia: None Recovery ECG: Sinus Bradycardia Recovery ST Change: No significant ST segment changes noted Recovery Arrhythmia: None Clinical Stress Symptoms: Fatigue, nausea, moderate SOB, left arm numbness (mild) Angina Score: None Rate Pressure Product: 20208 Stress ECG Conclusion 1. Electrocardiogram shows sinus bradycardia otherwise normal 2. Patient underwent testing using low-level exercise coupled with pharmacologic stress with regadeno son 3. Peak heart rate achieved was 65% of predicted for age 4. Electrocardiographic portion of the test was nondiagnostic due to inadequate heart rate 5. See MPI report Stress Test Summary STAGE HR BP SpO2 Symptoms NOTES Supine 47 138/86 99 Standing 48 142/82 1 min post Lexiscan injection 92 150/100 99 Fatigue (gerneralized but mostly to bilateral LE's), naus ea, moderate SOB 3 min post Lexiscan injection 63 155/82 Fatigue (gerneralized but mostly to bilateral LE's), moderat e SOB, mild left arm numbness 6 min post Lexiscan injection 61 150/82 Fatigue (gerneralized but mostly to bilateral LE's), modera te SOB (starting to resolve), mild left arm numbness 9 min post Lexiscan injection 59 142/82 98 All symptoms resolved with chagne of position from supine to sitting. MPI Conclusion Myocardial perfusion is normal. There is no ischemia or evidence of prior infarction EF is 52% with normal wall motion Radiologist Interpretation Radiologist agrees with Grand Scribe's Interpretation. Radiologist Interpretation by: Tamia Urena MD Interpretation Date/Time: 12/23/2022 16:20:52
[2022-12-23] MEDS: Regadenoson 0.4 MG/5 ML SYR IVP (13:34)
== END 2022-12-23 01:21 ==
LOC: DI 01:01
PROVIDERS: PCP Family Medicine; Visit Provider Family Medicine
DX: I25.10 Atherosclerotic heart disease of native coronary artery without angina pectoris (principal)
CPT/HCPCS: 78452; 93016; 93018; 93017; J2785

== ENCOUNTER 2023-01-03 18:58 | Outpatient (REF) | payer OTHER, SELFPAY ==
[2023-01-03 19:23] LABS: COMMENT (LAB VIEW ONLY) 66.38 mg/dL; PROTEIN 18.8 mg/dL; Prot/Crea Ur Ratio 0.28
== END 2023-01-03 18:59 | disposition home or self-care (01) ==
LOC: NCHCN 18:58
PROVIDERS: PCP Family Medicine; Visit Provider Nurse Practitioner Family
DX: E11.9 Type 2 diabetes mellitus without complications (principal)
CPT/HCPCS: 82565; 84156

== ENCOUNTER 2023-01-31 18:32 | Outpatient (REF) | payer OTHER, SELFPAY ==
[2023-01-31 19:10] LABS: Anion Gap 8.7 mmol/L (3-11); BUN 8 mg/dL (7-18); CO2 26.3 mmol/L (21.0-32.0); CREATININE 0.7 mg/dL (0.70-1.30); Calcium 8.9 mg/dL (8.5-10.1); Chloride 103 mmol/L (98-107); Glucose 114 mg/dL (74-106); Potassium 4.2 mmol/L (3.5-5.1); Sodium 138 mmol/L (136-145)
== END 2023-01-31 18:33 | disposition home or self-care (01) ==
LOC: NCHCN 18:32
PROVIDERS: PCP Family Medicine; Visit Provider Nurse Practitioner Family
DX: R80.9 Proteinuria, unspecified (principal); E11.9 Type 2 diabetes mellitus without complications
CPT/HCPCS: 80048

== ENCOUNTER 2023-04-25 16:36 | Outpatient (REF) | payer OTHER, SELFPAY ==
[2023-04-25 19:00] LABS: HCT 43.2 % (40.0-50.0); HGB 14.8 g/dL (13.5-17.5); MCH 30.6 pg (27.0-33.0); MCHC 34.3 % (32.0-36.0); MCV 89 fL (80-95); MPV 11.3 fL (8.0-11.0); Platelet Count 182 10^3/uL (130-400); RBC 4.83 10^6/uL (4.36-5.78); RDW 12.5 % (11.8-14.1); RDW-SD 41.1 fL; WBC 11.94 10^3/uL (4.4-10.8)
[2023-04-25 19:38] LABS: Hemoglobin A1C 5.8 % (<5.7)
[2023-04-25 19:53] LABS: ALT 38 U/L (16-63); AST 29 U/L (15-37); Alkaline Phosphatase 84 U/L (46-116); Anion Gap 9.4 mmol/L (3-11); BUN 14 mg/dL (7-18); Bilirubin, Total 0.6 mg/dL (0.2-1.0); CO2 25.6 mmol/L (21.0-32.0); CREATININE 0.7 mg/dL (0.70-1.30); Chloride 103 mmol/L (98-107); Estimated GFR 106.14 (mL/min/1.73m2); Glucose 90 mg/dL (74-106); Potassium 4.4 mmol/L (3.5-5.1); Sodium 138 mmol/L (136-145); TSH (W/Ref FT4) 2.83 uIU/mL (0.36-3.74); Total Protein 7.7 g/dL (6.4-8.2)
== END 2023-04-25 16:37 | disposition home or self-care (01) ==
LOC: NCHCN 16:36
PROVIDERS: PCP Family Medicine; Visit Provider Family Medicine
DX: R53.83 Other fatigue (principal); R73.09 Other abnormal glucose
CPT/HCPCS: 80053; 85027; 83036; 84443

== ENCOUNTER 2023-05-23 15:55 | Outpatient (REF) | payer OTHER, SELFPAY ==
[2023-05-23 19:47] LABS: HCT 41.6 % (40.0-50.0); HGB 14.3 g/dL (13.5-17.5); MCH 30.9 pg (27.0-33.0); MCHC 34.4 % (32.0-36.0); MCV 90 fL (80-95); MPV 12.2 fL (8.0-11.0); Platelet Count 164 10^3/uL (130-400); RBC 4.63 10^6/uL (4.36-5.78); RDW 12.4 % (11.8-14.1); WBC 7.77 10^3/uL (4.4-10.8)
[2023-05-24 13:37] LABS: Calculated LDL 66 mg/dL (<100); Cholesterol 110 mg/dL (<200); HDL Cholesterol 37 mg/dL (40-60); Triglyceride 37 mg/dL (<150)
[2023-05-24 13:57] LABS: Creatine Kinase 105 U/L (39-308)
[2023-05-24 22:55] LABS: PSA, Screening 0.2 ng/mL (<=3.5)
== END 2023-05-23 15:56 | disposition home or self-care (01) ==
LOC: NCHCN 15:55
PROVIDERS: PCP Family Medicine; Visit Provider Family Medicine
DX: E78.5 Hyperlipidemia, unspecified (principal); Z80.42 Family history of malignant neoplasm of prostate; D72.829 Elevated white blood cell count, unspecified; Z12.5 Encounter for screening for malignant neoplasm of prostate
CPT/HCPCS: 80061; 82550; 84153; 85027

== ENCOUNTER 2023-07-27 16:07 | Outpatient (REF) | payer OTHER, SELFPAY ==
[2023-07-28 10:34] LABS: Hepatitis A Antibody IgM Negative (Negative); Hepatitis B Core Antibody Negative (Negative); Hepatitis B surface Ag Negative (Negative); Hepatitis C Ab w Rflx HCV PCR Reactive (Negative)
[2023-07-29 12:18] LABS: HCV RNA Qualitative Undetected (Undetected)
== END 2023-07-27 16:08 | disposition home or self-care (01) ==
LOC: NCHCN 16:07
PROVIDERS: PCP Family Medicine; Visit Provider Family Medicine
DX: B19.20 Unspecified viral hepatitis C without hepatic coma (principal)
CPT/HCPCS: 86704; 86709; 86803; 87340; 87522

== ENCOUNTER 2023-08-15 20:40 | Outpatient (REF) | payer OTHER, SELFPAY ==
[2023-08-23 17:26] LABS: Benzoylecgonine 62 ng/mL (Cutoff: 50); Cocaine Negative ng/mL (Cutoff: 50); Cocaine Interpretation Positive.
== END 2023-08-15 20:41 | disposition home or self-care (01) ==
LOC: NCHCN 20:40
PROVIDERS: PCP Family Medicine; Visit Provider Nurse Practitioner Family
DX: Z79.899 Other long term (current) drug therapy (principal)
CPT/HCPCS: 80353; 82520

== ENCOUNTER 2023-08-23 09:51 | Emergency (ER) | payer OTHER, SELFPAY ==
[2023-08-23 09:55] VITALS: BP 148/81; PULSE 65; RESP 16; TEMP 36.6; O2SAT 98
--- NOTE | 2023-08-23 10:00 | DI.RAD_ITS ---
Exam(s) XR CHEST 2V PA LATERAL EXAM: XR CHEST 2V PA LATERAL CLINICAL HISTORY: chest pain. TECHNIQUE: 2D digital imaging was performed. COMPARISON: CR CHEST 2 VIEWS PA,LAT from 07/09/2017 FINDINGS: 2 views: Heart size is normal. The mediastinum is not widened. Lungs are clear. No infiltrates nor pleural effusions. IMPRESSION: No acute pulmonary findings. DATA REPOSITORY: RADIATION DOSE DELIVERED:
--- NOTE | 2023-08-23 10:00 | RT.EKG_ITS ---
APPROVED REPORT Exam: Resting ECG Reason for Exam: chest pain using ngt, hx NE Patient Location: E HR:56 bpm ECG Measurements Heart Rate 56 AXIS AK 150 P 73 QRSd 109 QRS 74 QT 415 T 50 QTc 402 Conclusion Sinus bradycardia...rate< 60 Probable left atrial enlargement...P >50mS, <-0.10mV V1
--- NOTE | 2023-08-23 10:08 | ED.GENADUL_ITS ---
Discharge Plan Disposition Patient Disposition: Home Condition: Stable Discharge Details Clinical Impression: Acute viral syndrome Primary Care Provider: Lyndsay Katz V ED Provider: Daniel Ochoa Home Meds and New Rx's Prescriptions: Continued atorvastatin 80 MG tablet 80 mg PO DAILY metoprolol succinate 25 MG tablet extended release 24 hr 25 mg PO DAILY naratriptan 2.5 MG tablet 2.5 mg PO ONCE PRN Patient Comments: 05/23/17- may repeat dose if migraine does not resolve after 4 hours. Max dose 5mg in 24hrs. HM buprenorphine-naloxone 1 EACH tablet, sublingual 12 mg Sublingual DAILY Patient Comments: 05/23/17- takes total of 12mg daily. HM gabapentin 100 mg capsule 400 mg PO TID Anoro Ellipta 62.5-25 mcg/actuation blister with device 1 inh inhalation DAILY methocarbamol 750 mg tablet 750 mg PO BID PRN aspirin 81 mg tablet,delayed release (DR/EC) 81 mg PO DAILY omeprazole 40 mg capsule,delayed release(DR/EC) 40 mg PO DAILY isosorbide mononitrate 60 mg tablet extended release 24 hr 60 mg PO DAILY buprenorphine-naloxone [Suboxone] 12-3 mg film 1 film sublingual DAILY nitroglycerin [Nitrostat] 0.4 mg tablet, sublingual 0.4 mg sublingual Q5M PRN Rx Instructions: do not exceed 3 doses per episode albuterol sulfate [Ventolin HFA] 90 mcg/actuation HFA aerosol inhaler 2 puff inhalation Q6H PRN Discharge Instructions Instructions: Viral Syndrome (ED) Additional Instructions: You were seen in the emergency department for your likely viral syndrome, your white blood cells are not significantly elevated meaning this is not a severe bacterial infection. EKG shows no acute changes, your troponin is negative which is a cardiac enzyme consistent with strain on the heart, I do not think that your left-sided chest cramp was related to your heart. Please continue to take 1000 mg of Tylenol 4 times per day. This is not COVID or the flu or RSV, your strep culture is pending, please return to the emergency department for any increasing shortness of breath or significant chest pain especially with dizziness, shortness of breath. Continue your at home inhalers for COPD. Referrals: Lyndsay Katz MD [Primary Care Provider] - Discharge Data Discharge Date/Time-TO BE ENTERED AT DEPARTURE: 08/23/23 12:00 Medical Decision Making This dictation utilizes [id number] dictation software and may contain unedited grammatical errors. 58 y/o M presents to ED today with a chief complaint of significant L sided chest cramp that relieved with nitro on Tuesday, in the setting of one week of fatigue, body aches, chills. Denies vomiting, syncope, altered mentation, high fever. Cough is not the focal symptom of this illness. Patients' medical history: history of CA with stenting in remote past, vaccinated for Covid-19, does not receive flu shot. Family and social history: smoking history, uses inhalers at home. Pertinent exam findings / vital signs include lungs CTA, benign cardiac exam, benign abdomen, nontoxic, erythematous posterior oropharynx with question R tonsillar exudate. Differential / pathologies of concern include ACS, Viral Syndrome, Covid-19, Influenza, Strep Pharyngitis. Diagnostic studies of: -EKG, CXR, CBC, CMP, Trop I, Strep Screen, Covid/Flu/RSV PCR. -EKG shows sinus bradycardia at 56 bpm with normal axis, good R wave progression, no ST changes, normal QT QTc -CXR shows no acute findings, no PNA, no cardiomegaly -CBC benign, no leukocytosis -CMP benign -Trop I negative with reliable onset to ruleout ACS from his L side cramps -negative Covid/Flu/RSV -Rapid strep negative, Cx pending at d/c Interventions of: -Tylenol & ibuprofen. ED Course: Counseled the patient on likely viral syndrome without significant leukocytosis I do not suspect severe infection or sepsis, his left-sided cramp did respond to nitro at home but his troponin is not elevated indicating that this is not an acute coronary syndrome, he likely has a viral syndrome with muscle cramps, CMP is benign and chest x-ray shows no acute abnormality or pneumonia. I counseled the patient on his pending strep culture and somebody contacting him if this was positive but that this would likely improve over the week, and he may follow-up with primary care provider or return to the ED for any increasing signs of chest pain, shortness of breath, diaphoresis, intractable nausea or vomiting. Findings not consistent with ACS, pneumothorax, pneumonia, sepsis, profound dehydration, the patient likely has a viral syndrome. Disposition of Acute Viral Syndrome. Patient verbalized understanding of the plan and return to ED criteria and engaged in shared decision making. Medical Records Medical records reviewed: Yes I reviewed the patient's medical records. Imaging Data Radiologic Study: Imaging: X-Ray Radiologist's impression: EXAM: XR CHEST 2V PA LATERAL CLINICAL HISTORY: chest pain. TECHNIQUE: 2D digital imaging was performed. COMPARISON: CR CHEST 2 VIEWS PA,LAT from 07/09/2017 FINDINGS: 2 views: Heart size is normal. The mediastinum is not widened. Lungs are clear. No infiltrates nor pleural effusions. IMPRESSION: No acute pulmonary findings. Lab Data Lab results reviewed: Yes I reviewed the patient's lab results. Labs: 08/23/23 10:17 Tonsil - Not Specified Group A Streptococcus Culture - Pending Laboratory Tests Range/Units 08/23/23 10:19 WBC (4.4-10.8) 10^3/uL 8.48 RBC (4.36-5.78) 10^6/uL 5.11 Hgb (13.5-17.5) g/dL 15.5 Hct (40.0-50.0) % 45.0 MCV (80-95) fL 88 MCH (27.0-33.0) pg 30.3 MCHC (32.0-36.0) % 34.4 RDW (11.8-14.1) % 12.7 Plt Count (130-400) 10^3/uL 148 MPV (8.0-11.0) fL 10.7 Immature Gran % 0.4 Neutrophils % 64.5 Lymphocytes % 23.0 Monocytes % 8.1 Eosinophils % 3.1 Basophils % 0.9 Nucleated RBC % (0.0-0.3) % 0.0 Absolute Neutrophils (1.2-6.7) 10^3/uL 5.47 Absolute Lymphocytes (1.2-3.4) 10^3/uL 1.95 Absolute Monocytes (0.1-0.8) 10^3/uL 0.69 Absolute Eosinophils (0.0-0.7) 10^3/uL 0.26 Absolute Basophils (0.0-0.2) 10^3/uL 0.08 Sodium (136-145) mmol/L 139 Potassium (3.5-5.1) mmol/L 4.4 Chloride (98-107) mmol/L 104 Carbon Dioxide (21.0-32.0) mmol/L 26.5 Anion Gap (3-11) mmol/L 8.5 BUN (7-18) mg/dL 16 Creatinine (0.70-1.30) mg/dL 0.7 Est GFR (CKD-EPI 2020) (mL/min/1.73m2) 106.14 Glucose (74-106) mg/dL 134 H Calcium (8.5-10.1) mg/dL 9.1 Total Bilirubin (0.2-1.0) mg/dL 0.3 AST (15-37) U/L 23 ALT (16-63) U/L 32 Alkaline Phosphatase (46-116) U/L 79 Troponin I (<or=60) ng/L < 50 Total Protein (6.4-8.2) g/dL 8.1 Albumin (3.4-5.0) g/dL 3.9 COVID-19 Source Nasopharynx SARS-CoV-2 (PCR) (Negative) Negative Influenza Type A (PCR) (Negative) Negative Influenza Type B (PCR) (Negative) Negative RSV (PCR) (Negative) Negative HPI General Date/Time Provider Initiated Documentation: 08/23/23 10:02 . HPI Narrative: 58 year-old male presents to ED today by POV/ambulating with his daughter with a chief complaint of generalized malaise for one week, sore throat, body aches, dehydration, resolving diarrhea. Quality described as genearlized body aches, with cramps in his toes, knees, L arm and L chest significantly this past tuesday, which he took nitro for- and it resolved his L chest 'cramp,', no radiation to cough as main symptom, endorses shortness of breath with walking into the hospital, denies dizziness, diaphoresis, altered mentation, high fever, intractable nausea/vomiting. Severity is described as moderate. Palliating factors include nitroglycerin with relief of chest cramp, takes 81mg aspirin da rojelio. Provoking factors include nothing specific. Events leading up to the incident/Associated Symptoms: Patient is vaccinated and boosted against Covid- 19, does not receive flu shot. Patient has history of CA with stents in remote past. Patient not anticoagulated. Related Data Home Medications Medication Instructions Recorded Confirmed atorvastatin 80 mg tablet 80 mg PO DAILY 05/23/17 08/23/23 buprenorphine 8 mg-naloxone 2 mg 12 mg sublingual DAILY 05/23/17 08/23/23 sublingual tablet metoprolol succinate 25 mg 25 mg PO DAILY 05/23/17 08/23/23 tablet,extended release 24 hr naratriptan 2.5 mg tablet 2.5 mg PO ONCE PRN 05/23/17 08/23/23 aspirin 81 mg tablet,delayed 81 mg PO DAILY 07/27/21 08/23/23 release gabapentin 100 mg capsule 400 mg PO TID 07/27/21 08/23/23 isosorbide mononitrate 60 mg 60 mg PO DAILY 07/27/21 08/23/23 tablet,extended release 24 hr methocarbamol 750 mg tablet 750 mg PO BID PRN 07/27/21 08/23/23 omeprazole 40 mg capsule,delayed 40 mg PO DAILY 07/27/21 08/23/23 release umeclidinium 62.5 mcg-vilanterol 1 inh inhalation DAILY 07/27/21 08/23/23 25 mcg/actuation powdr for inhalation (Anoro Ellipta) albuterol sulfate 90 mcg/actuation 2 puff inhalation Q6H PRN 06/25/22 08/23/23 aerosol inhaler (Ventolin HFA) buprenorphine 12 mg-naloxone 3 mg 1 film sublingual DAILY 06/25/22 08/23/23 sublingual film (Suboxone) nitroglycerin 0.4 mg sublingual 0.4 mg sublingual Q5M PRN 06/25/22 08/23/23 tablet (Nitrostat) Allergies Allergy/AdvReac Type Severity Reaction Status Date / Time Penicillins Allergy Intermediate Skin Rash Verified 08/23/23 09:59 varenicline [From Chantix] Allergy Intermediate Verified 08/23/23 09:59 bupropion HCl AdvReac Intermediate Verified 08/23/23 09:59 [From Wellbutrin] codeine AdvReac Verified 08/23/23 09:59 zolpidem tartrate AdvReac Verified 08/23/23 09:59 [From Ambien] General Stated Complaint: RespSymp PAULA: 3 Review of Systems All systems reviewed & are unremarkable except as noted in HPI and below PFSH All Active Problems (Updated 08/23/23 @ 11:34 by KWASI Rivero) Acute viral syndrome (Acute) Screening for colon cancer (Acute) Smoker (Acute) History of tobacco abuse (Acute) Coronary artery disease (Chronic) Hand laceration (Acute) Medical History Acute chest wall pain Acute CA Prakash's palsy COPD (chronic obstructive pulmonary disease) Dermatofibroma Diabetes mellitus Floaters Fracture of corpus cavernosum penis GERD (gastroesophageal reflux disease) Hepatitis C HLD (hyperlipidemia) Insomnia Lightheadedness Lung mass Major depression Migraine Mild memory disturbance MRSA (methicillin resistant staph aureus) culture positive Renal calculus Retinal detachment RUQ pain Severe sleep apnea Skin lesion Spinal stenosis of lumbar region Substance abuse Urinary frequency Surgical History H/O heart artery stent Social History Smoking/Tobacco Use Status: Current every day Tobacco Type: cigarettes Tobacco: How many years used: 35 Smoking risk assessment performed?: Yes Alcohol Intake: former Drug use: Daily Substance use type: marijuana Details: on suboxone, currently sobriety Household members: none Housing: house Pets and animals: Yes Pets and animals: dog(s) What type of physical activity do you participate in: additional Details: turning camp into home Do you feel safe at home: Yes Do you feel safe in your relationship?: Yes Exam Narrative Exam Narrative: GENERAL APPEARANCE: Well-nourished, non-toxic, awake and alert, atraumatic, no acute distress. SKIN: Warm, pink, dry, intact, without rashes/lesions/ulcerations. HEAD: Normocephalic, atraumatic, normal hair distribution for gender/age. EYES: Pupils PERRLA, EOMs intact without nystagmus, normal conjunctiva, no exudates on lids/lashes. ENT: Nares patent, no circumoral cyanosis, no facial swelling, question mild exudate to R tonsil, posterior oropharynx erythematous NECK: Supple, trachea midline, painless cervical ROM. LUNGS/CHEST: Lungs CTA bilaterally- no rhonchi/rales/wheezes diffusely, non- labored respirations, normal A/P diameter, symmetrical expansion, no chest wall deformity HEART (CV/PV): Regular rate and rhythm without murmur, no peripheral edema, no JVD. ABDOMEN: Soft, non-distended, no guarding, no tenderness. MSK: Normal ROM, no swelling/deformity to bilateral UEs or LEs, moving all extremities without weakness, no cyanosis, spine midline without tenderness, normal curvature. NEURO: Mental Status AAOx4 - alert to person, place, time, events No facial droop, no forehead involvement. Motor: No focal weakness - strength 5/5 in bilateral UEs and LEs, proximal and distal, symmetric. Sensory: sensation intact to light touch globally. Gait normal: patient ambulated without ataxia into ED room. PSYCH: euthymic, cooperative, pleasant, appropriate speech Course Vital Signs Vital signs: Vital Signs Temperature 36.6 C 08/23/23 09:55 Pulse 65 08/23/23 09:55 Respiratory Rate 16 08/23/23 09:55 Blood Pressure 148/81 H 08/23/23 09:55 Pulse Oximetry 98 08/23/23 09:55 Temperature 36.6 C 08/23/23 09:55 Temperature Source Tympanic 08/23/23 09:55 Pulse 65 08/23/23 09:55 Respiratory Rate 16 08/23/23 09:55 Blood Pressure 148/81 H 08/23/23 09:55 Blood Pressure Position Sitting 08/23/23 09:55 Pulse Oximetry 98 08/23/23 09:55 Oxygen Delivery Method Room Air 08/23/23 09:55 Oxygen Flow Rate 0 08/23/23 09:55 Pain Level 7 08/23/23 09:55
[2023-08-23 10:35] LABS: Abs Immature Grans 0.03 10^3/uL (0.0-0.06); Absolute Basophil Count 0.08 10^3/uL (0.0-0.2); Absolute Eosinophil Count 0.26 10^3/uL (0.0-0.7); Absolute Lymphocyte Count 1.95 10^3/uL (1.2-3.4); Absolute Monocyte Count 0.69 10^3/uL (0.1-0.8); Absolute Neutrophil Count 5.47 10^3/uL (1.2-6.7); Basophils % 0.9; Eosinophils % 3.1; HGB 15.5 g/dL (13.5-17.5); Immature Grans % 0.4; MCH 30.3 pg (27.0-33.0); MCHC 34.4 % (32.0-36.0); MCV 88 fL (80-95); MPV 10.7 fL (8.0-11.0); Monocytes % 8.1; Neutrophils % 64.5; Platelet Count 148 10^3/uL (130-400); RBC 5.11 10^6/uL (4.36-5.78); RDW 12.7 % (11.8-14.1); RDW-SD 41.1 fL; WBC 8.48 10^3/uL (4.4-10.8)
[2023-08-23 11:00] LABS: ALT 32 U/L (16-63); AST 23 U/L (15-37); Albumin 3.9 g/dL (3.4-5.0); Alkaline Phosphatase 79 U/L (46-116); Anion Gap 8.5 mmol/L (3-11); BUN 16 mg/dL (7-18); Bilirubin, Total 0.3 mg/dL (0.2-1.0); CO2 26.5 mmol/L (21.0-32.0); CREATININE 0.7 mg/dL (0.70-1.30); Calcium 9.1 mg/dL (8.5-10.1); Chloride 104 mmol/L (98-107); Estimated GFR 106.14 (mL/min/1.73m2); Glucose 134 mg/dL (74-106); Potassium 4.4 mmol/L (3.5-5.1); Sodium 139 mmol/L (136-145); Total Protein 8.1 g/dL (6.4-8.2); Troponin I < 50 ng/L (<or=60)
[2023-08-23 11:10] LABS: COVID-19 PCR Negative (Negative); Influenza A PCR Negative (Negative); Influenza B PCR Negative (Negative); RSV PCR Negative (Negative)
[2023-08-23 11:11] LABS: Source Nasopharynx
[2023-08-23 11:35] VITALS: PULSE 79; RESP 22
[2023-08-23 11:40] VITALS: PULSE 63; RESP 21; O2SAT 97
[2023-08-23 11:43] VITALS: TEMP 36.9
[2023-08-23] MEDS: Acetaminophen 500 MG TAB 1000 MG PO (11:53)
[2023-08-23] MEDS: Ketorolac 10 MG TAB PO (11:53)
== END 2023-08-23 12:00 | disposition home or self-care (01) ==
PROVIDERS: Emergency Provider Physician Assistant; PCP Family Medicine
DX: M34.9 Systemic sclerosis, unspecified (principal); E11.9 Type 2 diabetes mellitus without complications; E78.5 Hyperlipidemia, unspecified; J44.9 Chronic obstructive pulmonary disease, unspecified; I25.10 Atherosclerotic heart disease of native coronary artery without angina pectoris; I25.2 Old myocardial infarction; R00.1 Bradycardia, unspecified; Z79.82 Long term (current) use of aspirin; Z95.5 Presence of coronary angioplasty implant and graft; Z20.822 Contact with and (suspected) exposure to COVID-19
CPT/HCPCS: 36415; 80053; 87637; 87880; 93005; 99283; 71046; 84484; 85025; 87081; 93010

== ENCOUNTER 2023-09-12 19:05 | Outpatient (REF) | payer OTHER, SELFPAY ==
[2023-09-16 05:32] LABS: Benzoylecgonine Negative ng/mL (Cutoff: 50); Cocaine Negative ng/mL (Cutoff: 50); Cocaine Interpretation Negative.
== END 2023-09-12 19:06 | disposition home or self-care (01) ==
LOC: NCHCN 19:05
PROVIDERS: PCP Family Medicine; Visit Provider Nurse Practitioner Family
DX: F11.11 Opioid abuse, in remission (principal)
CPT/HCPCS: 80353

== ENCOUNTER 2024-04-23 16:40 | Outpatient (REF) | payer OTHER, SELFPAY ==
[2024-04-27 11:14] LABS: Benzoylecgonine Negative ng/mL (Cutoff: 50); Cocaine Negative ng/mL (Cutoff: 50); Cocaine Interpretation Negative.
[2024-04-29 14:39] LABS: Amphetamine 582 ng/mL (Cutoff: 25); Amphetamines Interpretation Positive.; MDMA (Ecstasy) Negative ng/mL (Cutoff: 25); Methamphetamine 4058 ng/mL (Cutoff: 25); Phentermine Negative ng/mL (Cutoff: 25); Pseudoephedrine/Ephedrine Negative ng/mL (Cutoff: 25)
== END 2024-04-23 16:41 | disposition home or self-care (01) ==
LOC: NCHCN 16:40
PROVIDERS: PCP Family Medicine; Visit Provider Nurse Practitioner Family
DX: F11.21 Opioid dependence, in remission (principal); Z79.899 Other long term (current) drug therapy
CPT/HCPCS: 80324; 80353

== ENCOUNTER → 2024-04-26 05:33 | Outpatient (CLI) | payer OTHER, SELFPAY ==
--- NOTE | 2024-04-26 | DI.CTLCSR_ITS ---
Exam(s) CT CHEST LUNG CANCER SCREEN EXAM: CT CHEST LUNG CANCER SCREEN CLINICAL HISTORY: SCREENING FOR LUNG CANCER, F17.210, CURRENT SMOKER TECHNIQUE: Imaging Protocol: Axial computed tomography images with coronal and sagittal reformatted images were created and reviewed. Low dose screening protocol. COMPARISON: CT CT CHEST LUNG CANCER SCREEN from 12/16/2022 FINDINGS: Tracheobronchial tree: No bronchiectasis or mucus plugging. Mediastinum and Aubree: No dominant adenopathy or fluid collection. Pulmonary parenchyma: No consolidation or dominant measurable mass. Mild emphysematous changes. Lung Nodules: Stable left perifissural nodule. Pleura: No effusion. No pneumothorax. Heart: The heart is not dilated. Stents and coronary artery calcifications are seen. Aorta: Thoracic aorta non-dilated. Upper abdomen: Unremarkable. Bones: Prominent endplate osteophytes. No compression fractures. Soft Tissues: Unremarkable. IMPRESSION: No suspicious pulmonary nodules. Lung RADS Cat 1 - Negative: No nodules and definitely benign nodules Lung-RADS 1.0 CATEGORIES: Category 0 - Prior chest CT exam(s) being located for comparison. Category 1 - Annual screening in 12 months. No nodules or definitely benign nodules. Category 2 - Annual screening in 12 months. Benign appearance. Nodules with low likelihood of becomin g active cancer. Category 3 - 6-month follow-up. Probably benign. Short-term follow-up suggested. Nodules with low lik elihood of becoming active cancer. Category 4A - 3-month follow-up and CT/PET if >8 mm in size. Suspicious finding. Findings which requi re additional testing. Category 4B - Findings which require additional testing and tissue sampling. Category 4X - Category 3 or 4 nodules with additional features or imaging findings that increases the suspicion of malignancy. Modifier S- Potentially clinically significant findings (non lung cancer) RADIATION DOSE DELIVERED: Total DLP DATA REPOSITORY: All CT scans at this facility are submitted to the National Radiology Data Registry (NRDR) Dose Index Registry (DIR) with the [employer] (ACR). RADIATION OPTIMIZATION: All CT scans at this facility use at least one of these dose optimization te chniques: automated exposure control; mA and/or kV adjustment per patient size (includes targeted exa ms where dose is matched to clinical indication); or iterative reconstruction.
--- NOTE | 2024-04-26 | DI.US_ITS ---
Exam(s) US ABDOMEN EXAM: US ABDOMEN CLINICAL HISTORY: HISTORY HEP C, Z86.19 PERSONAL H/O INFECTIOUS/PARASITIC DISEASE TECHNIQUE: Ultrasound abdomen performed using standard protocol. COMPARISON: CT CTA THORAX/ABDOMEN/PELVIS from 04/02/2017 FINDINGS: LIVER: Normal size and echogenicity. No focal liver lesions are seen. GALLBLADDER: Status post cholecystectomy. BILIARY SYSTEM: No intrahepatic or extrahepatic biliary ductal dilation. KIDNEYS: Kidneys are symmetric in size. No evidence of renal calculi. No evidence of hydronephrosis. No renal mass or cyst identified. PANCREAS: Normal where visualized. SPLEEN: Not enlarged. ABDOMINAL AORTA AND IVC: Visualized portions normal caliber. ASCITES: None seen. IMPRESSION: Status post cholecystectomy. No biliary dilatation. No focal liver lesions. DATA REPOSITORY:
== END ==
PROVIDERS: PCP Family Medicine; Visit Provider Family Medicine
DX: F17.210 Nicotine dependence, cigarettes, uncomplicated (principal); Z86.19 Personal history of other infectious and parasitic diseases; Z90.5 Acquired absence of kidney
CPT/HCPCS: 71271; 76700

== ENCOUNTER 2024-07-31 17:15 | Outpatient (REF) | payer OTHER, SELFPAY ==
[2024-07-31 20:56] LABS: ALT 34 U/L (16-63); AST 24 U/L (15-37); Albumin 3.9 g/dL (3.4-5.0); Alkaline Phosphatase 84 U/L (46-116); Anion Gap 8.4 mmol/L (3-11); BUN 17 mg/dL (7-18); Bilirubin, Total 0.31 mg/dL (0.2-1.0); CO2 27.6 mmol/L (21.0-32.0); CREATININE 0.8 mg/dL (0.70-1.30); Calcium 9.2 mg/dL (8.5-10.1); Chloride 106 mmol/L (98-107); Estimated GFR 101.32 (mL/min/1.73m2); Glucose 96 mg/dL (74-106); Potassium 4.3 mmol/L (3.5-5.1); Sodium 142 mmol/L (136-145); Total Protein 7.6 g/dL (6.4-8.2); Vitamin B12 546 pg/mL (193-986)
[2024-08-01 20:18] LABS: AFP Tumor Marker <2.5 ng/mL (<8.1)
[2024-08-02 13:33] LABS: Albumin 57.9 % (55.8-66.1); Albumin g/dL 4.3 g/dL (3.6-5.2); Total Protein 7.4 g/dL (6.3-8.2)
== END 2024-07-31 17:16 | disposition home or self-care (01) ==
LOC: NCHCN 17:15
PROVIDERS: PCP Family Medicine; Visit Provider Family Medicine
DX: G64 Other disorders of peripheral nervous system (principal)
CPT/HCPCS: 80053; 82105; 82607; 84165

== ENCOUNTER 2024-08-10 16:38 | Outpatient (REF) | payer OTHER, SELFPAY ==
[2024-08-18 12:48] LABS: Benzoylecgonine 57 ng/mL (Cutoff: 50); Cocaine Negative ng/mL (Cutoff: 50); Cocaine Interpretation Positive.
== END 2024-08-10 16:39 | disposition home or self-care (01) ==
LOC: NCHCN 16:38
PROVIDERS: PCP Family Medicine; Visit Provider Nurse Practitioner Family
DX: F11.11 Opioid abuse, in remission (principal)
CPT/HCPCS: 80353

== ENCOUNTER 2024-09-13 15:57 | Outpatient (REF) | payer OTHER, SELFPAY ==
[2024-09-20 02:16] LABS: Benzoylecgonine 90 ng/mL (Cutoff: 50); Cocaine Negative ng/mL (Cutoff: 50); Cocaine Interpretation Positive.
== END 2024-09-13 15:58 | disposition home or self-care (01) ==
LOC: NCHCN 15:57
PROVIDERS: PCP Family Medicine; Visit Provider Nurse Practitioner Family
DX: F11.11 Opioid abuse, in remission (principal)
CPT/HCPCS: 80353

== ENCOUNTER 2025-06-14 15:05 | Outpatient (REF) | payer MEDICARE, SELFPAY ==
[2025-06-14 19:18] LABS: HCT 43.4 % (40.0-50.0); HGB 15.3 g/dL (13.5-17.5); MCH 31.7 pg (27.0-33.0); MCHC 35.3 % (32.0-36.0); MCV 90 fL (80-95); MPV 11.9 fL (8.0-11.0); Platelet Count 177 10^3/uL (130-400); RBC 4.82 10^6/uL (4.36-5.78); RDW 12.7 % (11.8-14.1); RDW-SD 41.5 fL; WBC 16.26 10^3/uL (4.4-10.8)
[2025-06-14 19:45] LABS: Hemoglobin A1C 6.2 % (<5.7)
[2025-06-14 20:02] LABS: ALT 30 U/L (16-63); AST 26 U/L (15-37); Albumin 4.5 g/dL (3.4-5.0); Alkaline Phosphatase 116 U/L (46-116); Anion Gap 9.4 mmol/L (3-11); BUN 14 mg/dL (7-18); Bilirubin, Total 0.6 mg/dL (0.2-1.0); CO2 28.6 mmol/L (21.0-32.0); Calcium 9.4 mg/dL (8.5-10.1); Calculated LDL 91 mg/dL (<100); Chloride 102 mmol/L (98-107); Cholesterol 148 mg/dL (<200); Estimated GFR 104.83 (mL/min/1.73m2); Glucose 127 mg/dL (74-106); HDL Cholesterol 36 mg/dL (>or=40); Potassium 3.8 mmol/L (3.5-5.1); Sodium 140 mmol/L (136-145); TSH (W/Ref FT4) 2.10 uIU/mL (0.36-3.74); Total Protein 8.4 g/dL (6.4-8.2); Triglyceride 106 mg/dL (<150); Vitamin B12 436 pg/mL (193-986)
[2025-06-14 20:18] LABS: C-Reactive Protein < 0.50 mg/dL (<or=0.5)
[2025-06-17 12:52] LABS: Albumin 57.0 % (55.8-66.1); Albumin g/dL 4.6 g/dL (3.6-5.2); Alpha 1 g/dL 0.30 g/dL (0.15-0.40); Alpha 2 g/dL 0.90 g/dL (0.50-1.00); Beta g/dL 0.90 g/dL (0.60-1.20); Gamma g/dL 1.30 g/dL (0.60-1.60); Total Protein 8.0 g/dL (6.3-8.2)
== END 2025-06-14 15:06 | disposition home or self-care (01) ==
LOC: NCHCN 15:05
PROVIDERS: PCP Family Medicine; Visit Provider Family Medicine
DX: E11.9 Type 2 diabetes mellitus without complications (principal); D72.829 Elevated white blood cell count, unspecified; E11.49 Type 2 diabetes mellitus with other diabetic neurological complication; B19.20 Unspecified viral hepatitis C without hepatic coma
CPT/HCPCS: 80053; 80061; 85027; 82105; 82607; 83036; 84165; 84443; 86140

== ENCOUNTER 2025-06-21 14:39 | Outpatient (REF) | payer MEDICARE, SELFPAY ==
[2025-06-21 16:43] LABS: COMMENT (LAB VIEW ONLY) 29.27 mg/dL
[2025-06-21 16:44] LABS: Microalb ug/mg Crea 259.7 ug/mg Cr
== END 2025-06-21 14:40 | disposition home or self-care (01) ==
LOC: NCHCN 14:39
PROVIDERS: PCP Family Medicine; Visit Provider Family Medicine
DX: R80.9 Proteinuria, unspecified (principal)
CPT/HCPCS: 82043; 82570

== ENCOUNTER 2025-07-03 01:19 | Outpatient (CLI) | payer MEDICARE, SELFPAY ==
--- NOTE | 2025-07-03 | DI.CTLCSR_ITS ---
Exam(s) CT CHEST LUNG CANCER SCREEN EXAM: CT CHEST LUNG CANCER SCREEN CLINICAL HISTORY: CIGARETTE NICOTINE DEPENDENCE F17.210 SCREENING LUNG CANCER TECHNIQUE: Imaging Protocol: Axial computed tomography images with coronal and sagittal reformatted images were created and reviewed. Lung Computer Aided Detection (CAD) was utilized. COMPARISON: CT CT CHEST LUNG CANCER SCREEN from 12/16/[address] CHEST LUNG CANCER SCREEN from 04/26/2024 FINDINGS: Tracheobronchial tree: Patent where visualized. No bronchiectasis. Pulmonary parenchyma: No consolidation or dominant measurable mass. No architectural distortion. The left perifissural nodule is stable. Lung Nodules: There are no suspicious pulmonary nodules. Mediastinum and Aubree: No dominant adenopathy or fluid collection. The esophagus is unremarkable. Thyroid gland: Unremarkable. Lymph nodes: Unremarkable. Pleura: No effusion or pneumothorax. Heart: The heart is not dilated. Two vessel coronary artery calcification is present. No pericardial effusion. Aorta: The ascending thoracic aorta measures 4.1 x 3.9 cm.Atherosclerotic calcification is present. Upper abdomen: Status post cholecystectomy. Soft Tissues: Unremarkable. Bones: Within normal limits. IMPRESSION: There are no suspicious pulmonary nodules. Lung RADS Cat 1 - Negative: No nodules and definitely benign nodules Lung-RADS 1.0 CATEGORIES: Category 0 - Prior chest CT exam(s) being located for comparison. Category 1 - Annual screening in 12 months. No nodules or definitely benign nodules. Category 2 - Annual screening in 12 months. Benign appearance. Nodules with low likelihood of becoming active cancer. Category 3 - 6-month follow-up. Probably benign. Short-term follow-up suggested. Nodules with low likelihood of becoming active cancer. Category 4A - 3-month follow-up and CT/PET if >8 mm in size. Suspicious finding. Findings which require additional testing. Category 4B - Findings which require additional testing and tissue sampling. Suspicious finding. Category 4X - Category 3 or 4 nodules with additional features or imaging findings that increases the suspicion of malignancy. Modifier S- Potentially clinically significant finding. (Non lung cancer) RADIATION DOSE DELIVERED: 30.11mGy.cm Total DLP 30.11mGy.cmTotal DLP DATA REPOSITORY: All CT scans at this facility are submitted to the National Radiology Data Registry (NRDR) Dose Index Registry (DIR) with the [employer] (ACR). RADIATION OPTIMIZATION: All CT scans at this facility use at least one of these dose optimization techniques: automated exposure control; mA and/or kV adjustment per patient size (includes targeted exams where dose is matched to clinical indication); or iterative reconstruction.
== END 2025-07-03 01:39 ==
LOC: DI 01:20
PROVIDERS: PCP Family Medicine; Visit Provider Family Medicine
DX: Z12.2 Encounter for screening for malignant neoplasm of respiratory organs (principal); F17.210 Nicotine dependence, cigarettes, uncomplicated
CPT/HCPCS: 71271